=== PATIENT | female | born 1985 | race Caucasian/White ===

== ENCOUNTER 2018-01-11 11:20 | Emergency (ER) | payer OTHER ==
[~2018-01-11] VITALS: Ht 170.2 cm; Wt 86.2 kg
[2018-01-11 11:52] VITALS: BP 120/74
[2018-01-11] MEDS ORDERED: PRED20TA PO (11:59)
--- NOTE | 2018-01-11 11:59 | PHYS DOC ---
Past History Past Medical History: Depression Additional Past Medical Histor: Crohn's Past Surgical History: Tonsillectomy Additional Past Surgical Histo: Intra-abdominal abscess Smoking: Cigarettes Alcohol Use: Rarely Drug Use: None Adult General Chief Complaint Chief Complaint: Neck Pain HPI HPI 32-year-old female presents with report of right sided "swollen lymph node "which is been ongoing for the past few days. Patient reports she was seen at the [facility] and started on antibiotics. Reports lymph node has not improved. Reports some slight sore throat which is now improved. Denies nasal congestion. Denies toothache. Denies fever/chills. Patient reports concern as she has a family history of "lymphoma". Review of Systems Review of Systems Constitutional: Denies fever or chills [] Eyes: Denies change in visual acuity, redness, or eye pain [] HENT: Denies current nasal congestion or sore throat, reports right sided lymph node Respiratory: Denies cough or shortness of breath [] Cardiovascular: Denies chest pain or palpitations] GI: Denies abdominal pain, nausea, vomiting, or diarrhea [] : Denies dysuria or hematuria or Musculoskeletal: Denies back pain or joint pain [] Integument: Denies rash or laceration Neurologic: Denies headache, focal weakness or sensory changes [] Complete systems were reviewed and found to be within normal limits, except as documented in this note. Allergies Allergies Allergies Coded Allergies Type Severity Reaction Last Updated Verified No Known Drug Allergies 01/11/18 No Physical Exam Physical Exam Constitutional: Well developed, well nourished, no acute distress, non-toxic appearance. [] HENT: Normocephalic, atraumatic, bilateral external ears normal, TMs clear, oropharynx moist, no oral exudates, nose normal, mild pharyngeal erythema Eyes: PERRL, EOMI, conjunctiva normal, no discharge. [] Neck: Normal range of motion, no tenderness, supple, no meningeal signs, right anterior cervical swollen lymph node appreciated Cardiovascular: Heart rate regular rhythm, no murmur [] Lungs & Thorax: Bilateral breath sounds clear to auscultation [] Abdomen: Soft, no tenderness Skin: Warm, dry, no erythema, no rash. [] Back: No tenderness, no CVA tenderness. [] Extremities: No tenderness, ROM intact, no edema. [] Neurologic: Alert and oriented X 3, normal motor function, normal sensory function, no focal deficits noted. [] Psychologic: Affect normal, judgement normal, mood- anxious EKG EKG [] Radiology/Procedures Radiology/Procedures [] Course & Med Decision Making Course & Med Decision Making Pertinent Labs and Imaging studies reviewed. (See chart for details) Patient presents with right swollen cervical lymph node. History of recent evaluation at urgent care and started on antibiotics. Other clinical findings of infection. Possible reactionary. Patient is concerned as family history of "lymphoma". Patient advised she would need to follow with her PCP for further evaluation. Imaging currently not required. We will treat supportively. Empiric steroid initiated. Patient advised to continue antibiotics until complete. Patient stable for discharge with outpatient follow-up with PCP. Discussed findings and plan with patient and family, who acknowledge understanding and agreement. Dragon Disclaimer Dragon Disclaimer This electronic medical record was generated, in whole or in part, using a voice recognition dictation system. Departure Departure: Impression: Primary Impression: Lymphadenopathy of right cervical region Disposition: 01 HOME, SELF-CARE Condition: STABLE Referrals: SENAIT JOHNOSN (PCP) Patient Instructions: Cervical Adenitis Scripts Prednisone (PREDNISONE) 20 Mg Tablet 2 TAB PO DAILY, #8 TAB Start on Saturday01/12/18 Prov: TRANG POLANCO DO 01/11/18 TRANG POLANCO DO Jan 11, 2018 11:59
[2018-01-11] MEDS ORDERED: predniSONE 20 MG TABLET PO ONE (12:00)
== END 2018-01-11 12:08 | disposition home or self-care (01) ==
LOC: ER 11:20
DX: R59.1 Generalized enlarged lymph nodes (principal); F32.9 Major depressive disorder, single episode, unspecified; F17.210 Nicotine dependence, cigarettes, uncomplicated
CPT/HCPCS: 99283; J7512

== ENCOUNTER 2018-05-23 16:59 | Emergency (ER) | payer OTHER ==
[~2018-05-23] VITALS: Ht 157.5 cm; Wt 85.3 kg
[~2018-05-23 16:59] MED LIST: PRED20TA PO
[2018-05-23] MEDS ORDERED: IV NORMAL SALINE 1,000ML 1,000 ML IV SCH (19:00)
--- NOTE | 2018-05-23 19:07 | ED.ADGEN ---
Past History Past Medical History: Depression Additional Past Medical Histor: Crohn's Past Surgical History: Tonsillectomy Additional Past Surgical Histo: Intra-abdominal abscess Smoking: Cigarettes Alcohol Use: Rarely Drug Use: None Adult General Chief Complaint Chief Complaint abd pain HPI HPI 33 years old female with history of Crohn's disease she is in Humira and prednisone presented to the emergency department with left lower quadrant abdominal pain described as a sharp constant pain she also noticed increased diarrhea and blood in the stool she was seen and evaluated in the Hospital in [facility] where she had a CT scan and urinalysis as CT scan of the abdomen showed possible pyelonephritis. She was placed on Levaquin she presented here to the emergency Department stated that her pain is a lot worse Review of Systems Review of Systems Constitutional: Denies fever or chills [] Eyes: Denies change in visual acuity, redness, or eye pain [] HENT: Denies nasal congestion or sore throat [] Respiratory: Denies cough or shortness of breath [] Cardiovascular: No additional information not addressed in HPI [] : Denies dysuria or hematuria [] Musculoskeletal: Denies back pain or joint pain [] Integument: Denies rash or skin lesions [] Neurologic: Denies headache, focal weakness or sensory changes [] Endocrine: Denies polyuria or polydipsia [] All other systems were reviewed and found to be within normal limits, except as documented in this note. Current Medications Current Medications Current Medications Medications (Trade) Dose Ordered Sig/Shakira Start Time Stop Time Status Last Admin Dose Admin Info (Do NOT chart on this entry -- for MONITORING) 1 each PRN DAILY PRN 05/23/18 20:00 05/25/18 19:59 Iohexol (Omnipaque 300 Mg/ml) 75 ml 1X ONCE 05/23/18 19:45 05/23/18 19:51 DC 05/23/18 20:35 75 ML Ketorolac Tromethamine (Toradol 30mg Vial) 30 mg 1X ONCE 05/23/18 19:30 05/23/18 19:31 DC 05/23/18 19:27 30 MG Morphine Sulfate (Morphine 4mg Syringe) 4 mg 1X ONCE 05/23/18 20:15 05/23/18 20:17 DC 05/23/18 20:11 4 MG Sodium Chloride 1,000 ml @ 100 mls/hr Q10H 12/21/18 19:00 05/24/18 04:59 05/23/18 19:27 100 MLS/HR Allergies Allergies Allergies Coded Allergies Type Severity Reaction Last Updated Verified No Known Drug Allergies 01/11/18 No Physical Exam Physical Exam Constitutional: Well developed, well nourished, no acute distress, non-toxic appearance. [] HENT: Normocephalic, atraumatic, bilateral external ears normal, oropharynx moist, no oral exudates, nose normal. [] Eyes: PERRLA, EOMI, conjunctiva normal, no discharge. [] Neck: Normal range of motion, no tenderness, supple, no stridor. [] Cardiovascular:Heart rate regular rhythm, no murmur [] Lungs & Thorax: Bilateral breath sounds clear to auscultation [] Abdomen: Bowel sounds normal, soft, + tenderness in left lower q , no masses, no pulsatile masses. [] Skin: Warm, dry, no erythema, no rash. [] Back: No tenderness, no CVA tenderness. [] Extremities: No tenderness, no cyanosis, no clubbing, ROM intact, no edema. [] Neurologic: Alert and oriented X 3, normal motor function, normal sensory function, no focal deficits noted. [] Psychologic: Affect normal, judgement normal, mood normal. [] Current Patient Data Vital Signs Vital Signs Date Time Temp Pulse Resp B/P (MAP) Pulse Ox O2 Delivery O2 Flow Rate FiO2 05/23/18 20:11 18 Room Air 05/23/18 19:06 98.4 99 97 Lab Results Laboratory Tests Test 05/23/18 18:45 05/23/18 18:57 05/23/18 19:20 05/23/18 20:40 Urine Collection Type Unknown Urine Color Yellow Urine Clarity Hazy Urine pH 6.0 Urine Specific [place] 1.015 Urine Protein Neg (NEG-TRACE) Urine Glucose (UA) 250 mg/dL (NEG) Urine Ketones (Stick) Neg mg/dL (NEG) Urine Blood Mod (NEG) Urine Nitrite Neg (NEG) Urine Bilirubin Neg (NEG) Urine Urobilinogen Dipstick 0.2 mg/dL (0.2 mg/dL) Urine Leukocyte Esterase Neg (NEG) Urine RBC 6-10 /HPF (0-2) Urine WBC 1-4 /HPF (0-4) Urine Squamous Epithelial Cells Many /LPF Urine Bacteria Few /HPF (0-FEW) Urine Mucus Slight /LPF POC Urine HCG, Qualitative hcg negative (Negative) White Blood Count 17.6 x10^3/uL (4.0-11.0) H Red Blood Count 4.95 x10^6/uL (3.50-5.40) Hemoglobin 14.7 g/dL (12.0-15.5) Hematocrit 43.2 % (36.0-47.0) Mean Corpuscular Volume 87 fL (79-100) Mean Corpuscular Hemoglobin 30 pg (25-35) Mean Corpuscular Hemoglobin Concent 34 g/dL (31-37) Red Cell Distribution Width 13.7 % (11.5-14.5) Platelet Count 499 x10^3/uL (140-400) H Neutrophils (%) (Auto) 69 % (31-73) Lymphocytes (%) (Auto) 21 % (24-48) L Monocytes (%) (Auto) 9 % (0-9) Eosinophils (%) (Auto) 0 % (0-3) Basophils (%) (Auto) 1 % (0-3) Neutrophils # (Auto) 12.2 x10^3uL (1.8-7.7) H Lymphocytes # (Auto) 3.6 x10^3/uL (1.0-4.8) Monocytes # (Auto) 1.6 x10^3/uL (0.0-1.1) H Eosinophils # (Auto) 0.0 x10^3/uL (0.0-0.7) Basophils # (Auto) 0.2 x10^3/uL (0.0-0.2) Segmented Neutrophils % 68 % (35-66) H Lymphocytes % 22 % (24-48) L Atypical Lymphocytes % (Manual) 1 % (0-0) H Monocytes % 9 % (0-10) Platelet Estimate Adequate (ADEQUATE) Sodium Level 139 mmol/L (136-145) Potassium Level 3.5 mmol/L (3.5-5.1) Chloride Level 104 mmol/L (98-107) Carbon Dioxide Level 23 mmol/L (21-32) Anion Gap 12 (6-14) Blood Urea Nitrogen 7 mg/dL (7-20) Creatinine 0.6 mg/dL (0.6-1.0) Estimated GFR (Cockcroft-Gault) 113.8 BUN/Creatinine Ratio 12 (6-20) Glucose Level 89 mg/dL (70-99) Calcium Level 7.9 mg/dL (8.5-10.1) L Total Bilirubin 0.2 mg/dL (0.2-1.0) Aspartate Amino Transferase (AST) 15 U/L (15-37) Alanine Aminotransferase (ALT) 30 U/L (14-59) Alkaline Phosphatase 111 U/L (46-116) Total Protein 6.6 g/dL (6.4-8.2) Albumin 2.8 g/dL (3.4-5.0) L Albumin/Globulin Ratio 0.7 (1.0-1.7) L Lipase 93 U/L (73-393) Serum Test, Qualitative Negative (NEG) EKG EKG [] Radiology/Procedures Radiology/Procedures [] Course & Med Decision Making Course & Med Decision Making Pertinent Labs and Imaging studies reviewed. (See chart for details) [] Final Impression Final Impression [] Problems: (1) Exacerbation of Crohn's disease Qualifiers: Qualified Codes: K50.90 - Crohn's disease, unspecified, without complications Dragon Disclaimer Dragon Disclaimer This electronic medical record was generated, in whole or in part, using a voice recognition dictation system. JOE HANSON MD May 23, 2018 19:07
[2018-05-23] MEDS ORDERED: KETOROLAC 30 MG/ML VIAL. IV ONE (19:30)
[2018-05-23] MEDS ORDERED: IOHEXOL 300 MG/ML 75 ML VIAL. IV ONE (19:45)
[2018-05-23 19:47] LABS: BASO # 0.2 x10^3/uL (0.0-0.2); BASO % 1 % (0-3); EOS % 0 % (0-3); HEMATOCRIT 43.2 % (36.0-47.0); HEMOGLOBIN 14.7 g/dL (12.0-15.5); LYMPH # 3.6 x10^3/uL (1.0-4.8); LYMPH % 21 % (24-48); MEAN CORPUSCULAR HEMOGLOBIN 30 pg (25-35); MEAN CORPUSCULAR HGB CONC 34 g/dL (31-37); MEAN CORPUSCULAR VOLUME 87 fL (79-100); MONO # 1.6 x10^3/uL (0.0-1.1); MONO % 9 % (0-9); NEUT # 12.2 x10^3uL (1.8-7.7); NEUT % 69 % (31-73); PLATELET COUNT 499 x10^3/uL (140-400); RED BLOOD COUNT 4.95 x10^6/uL (3.50-5.40); RED CELL DISTRIBUTION WIDTH 13.7 % (11.5-14.5); WHITE BLOOD COUNT 17.6 x10^3/uL (4.0-11.0)
[2018-05-23 19:54] LABS: BACTERIA,URINE FEW /HPF (0-FEW); BILIRUBIN,URINE NEG (NEG); CLARITY,URINE HAZY; COLOR,URINE YELLOW; GLUCOSE,URINE 250 mg/dL (NEG); NITRITE,URINE NEG (NEG); SQUAMOUS EPITHELIAL CELL,UR MANY /LPF; UROBILINOGEN,URINE 0.2 mg/dL (0.2 mg/dL)
[2018-05-23] MEDS ORDERED: CONTRAST GIVEN MC PRN (20:00)
[2018-05-23] MEDS ORDERED: MORPHINE SULFATE 4 MG/ML DISP.SYRIN. IV ONE (20:15)
[2018-05-23 20:49] LABS: PREG TEST PT QUAL NEGATIVE (NEG)
[2018-05-23 20:53] LABS: ALBUMIN 2.8 g/dL (3.4-5.0); ALBUMIN/GLOBULIN RATIO 0.7 (1.0-1.7); CALCIUM 7.9 mg/dL (8.5-10.1); CREATININE 0.6 mg/dL (0.6-1.0); GFR 113.8; POTASSIUM 3.5 mmol/L (3.5-5.1); TOTAL BILIRUBIN 0.2 mg/dL (0.2-1.0); TOTAL PROTEIN 6.6 g/dL (6.4-8.2)
[2018-05-23 21:36] LABS: % LYMPHS 22 % (24-48); % MONOS 9 % (0-10)
--- NOTE | 2018-05-23 21:46 | RAD ---
Examination: CT ABD PELV W/ IV CONTRST ONLY History: Abdominal pain. Left lower abdomen pain radiating to lower back. Hx crohn's disease. No previous surgery or injury Comparison/Correlation: 08/31/2011 CT abdomen and pelvis without contrast Findings: Axial images of the abdomen and pelvis were obtained following IV contrast administration. Liver, spleen, pancreas, adrenal glands, and left kidney are normal. Nonobstructive right renal interpolar region calyceal calculus measuring 0.5 cm diameter is present. No enlarged abdominal or pelvic lymph nodes. Appendix is normal. Large quantity of stool is present in the colon. Intrauterine device is present. Lymph nodes about the cecum are present but not enlarged. No inflammatory changes of the terminal ileum. No loculated collections or extraluminal gas. Abdominal aortic diameter is normal. Right adnexal follicles are present and probably physiologic. Urinary bladder is unremarkable. Bony structures are normal. Impression: Lymph nodes about the cecum are present but not enlarged. Correlate for underlying adenitis. No suspicious inflammatory changes. Nonobstructive right renal calculus. Electronically signed by: Steve Cuadra MD (05/23/2018 9:43 PM) [facility]
[2018-05-23 21:49] LABS: PLT ESTIMATE ADEQUATE (ADEQUATE)
[2018-05-23 21:58] LABS: % ATYL 1 % (0-0)
[2018-05-23 21:59] VITALS: BP 135/70
[2018-05-23] MEDS ORDERED: METR500T PO (22:05)
[2018-05-23] MEDS ORDERED: HYDR-3165 PO (22:05)
[2018-05-28 15:14] LABS: % SEGS 68 % (35-66)
== END 2018-05-23 22:14 | disposition home or self-care (01) ==
LOC: ER 16:59
DX: K50.90 Crohn's disease, unspecified, without complications (principal); R19.7 Diarrhea, unspecified; F17.210 Nicotine dependence, cigarettes, uncomplicated
CPT/HCPCS: 36415; 74177; 80053; 81001; 81025; 83690; 84703; 85007; 85025; 96361; 96374; 96375; 99284; J1885; J2270; Q9967; J7030

== ENCOUNTER 2018-07-19 12:38 | Emergency (ER) | payer OTHER ==
[~2018-07-19] VITALS: Ht 157.5 cm; Wt 88.5 kg
[~2018-07-19 12:38] MED LIST changes: +HYDR-3165 PO; +METR500T PO
[2018-07-19] MEDS ORDERED: IV NORMAL SALINE 1,000ML 1,000 ML IV SCH (13:00)
[2018-07-19] MEDS ORDERED: ONDANSETRON PF 4 MG/2 ML VIAL. IV ONE (13:00)
--- NOTE | 2018-07-19 13:28 | PHYS DOC ---
Past History Past Medical History: Depression, Other Additional Past Medical Histor: Crohn's Past Surgical History: Tonsillectomy, Other Additional Past Surgical Histo: Intra-abdominal abscess Smoking: Cigarettes Alcohol Use: Rarely Drug Use: None Adult General Chief Complaint Chief Complaint: FLANK PAIN HPI HPI Patient is a 33 year old female who presents with complaining of low back and flank pain for 10 days. She complaining of sudden onset of bilateral flank pain that is more in the left site for the last 10 days as a constant aching pain with episodes of sharp pain during urination. She complaining of urinary frequency and dysuria with temperature as high as 99.5 and nausea without vomiting and diarrhea and constipation. Patient was seen at [facility] and treated with Macrobid and then Cipro for 3 days with unremarkable UA and urine culture. Patient complaining of continuing to have pain in because of Crohn's disease decided to come to emergency room. Patient rated her pain 2/10 and states during urination her pain increases to 8/10. Review of Systems Review of Systems Constitutional: Reports low-grade fever Eyes: Denies change in visual acuity, redness, or eye pain [] HENT: Denies nasal congestion or sore throat [] Respiratory: Denies cough or shortness of breath [] Cardiovascular: No additional information not addressed in HPI [] GI: Denies abdominal pain, nausea, vomiting, bloody stools or diarrhea [] : Post urinary frequency and dysuria and flank pain Musculoskeletal: Denies back pain or joint pain [] Integument: Denies rash or skin lesions [] Neurologic: Denies headache, focal weakness or sensory changes [] Endocrine: Denies polyuria or polydipsia [] All other systems were reviewed and found to be within normal limits, except as documented in this note. Current Medications Current Medications Current Medications Medications (Trade) Dose Ordered Sig/Shakira Start Time Stop Time Status Last Admin Dose Admin Ondansetron HCl (Zofran) 4 mg 1X ONCE 07/19/18 13:00 07/19/18 13:09 DC Sodium Chloride 1,000 ml @ 1,000 mls/hr Q1H 07/19/18 13:00 07/19/18 13:59 07/19/18 13:22 1,000 MLS/HR Allergies Allergies Allergies Coded Allergies Type Severity Reaction Last Updated Verified ciprofloxacin Allergy Intermediate rash 07/19/18 Yes Physical Exam Physical Exam Constitutional: Well developed, well nourished, mild acute distress, non-toxic appearance. [] HENT: Normocephalic, atraumatic, oropharynx moist, no oral exudates, nose normal. [] Eyes: PERRLA, EOMI, conjunctiva normal, no discharge. [] Neck: Normal range of motion, no tenderness, supple, no stridor. [] Cardiovascular:Heart rate regular rhythm, no murmur [] Lungs & Thorax: Bilateral breath sounds clear to auscultation [] Abdomen: Bowel sounds normal, soft, no tenderness, no masses, no pulsatile masses. [] Skin: Warm, dry, no erythema, no rash. [] Back: No tenderness, no CVA tenderness. [] Extremities: No tenderness, no cyanosis, no clubbing, ROM intact, no edema. [] Neurologic: Alert and oriented X 3, normal motor function, normal sensory function, no focal deficits noted. [] Psychologic: Affect normal, judgement normal, mood normal. [] EKG EKG [] Radiology/Procedures Radiology/[place] [address] IMAGING REPORT Signed PATIENT: PENELOPE LOVELL ACCOUNT: [id number] : 1985 LOCATION: ER AGE: 33 SEX: F EXAM STATUS: REG ER ORD. PHYSICIAN: LUCERO LÓEPZ MD REASON: left flank pain for 10 days PROCEDURE: CT ABDOMEN PELVIS WO CONTRAST ADDENDUM PQRS Compliance Statement: One or more of the following individualized dose reduction techniques were utilized for this examination: 1. Automated exposure control 2. Adjustment of the mA and/or kV according to patient size 3. Use of iterative reconstruction technique Electronically signed by: Jeffry Lamb MD (07/19/2018 4:19 PM) [facility] DICTATED AND SIGNED BY: JEFFRY LAMB MD DATE: 07/19/18 1618 CC: SENAIT JOHNSON; LUCERO LÓPEZ MD ~ CT abdomen and pelvis without contrast. HISTORY: Left flank pain CT scan of the abdomen and pelvis was done without contrast. Comparison is made to study from May 2018. Lung bases are clear. There is no pleural effusion. A liver lesion is not identified. Spleen and adrenal glands are normal. Pancreas is unremarkable. There are small bilateral intrarenal calculi. There is no ureteral calculus or hydronephrosis. There is no calcified gallstone. There is no adenopathy or ascites. There is no free air. There is no bowel obstruction. Appendix is normal. There is an intrauterine contraceptive device in normal position. Ovaries are unremarkable. There is no ascites. There is mild wall thickening of the descending colon and sigmoid colon consistent with colitis. IMPRESSION: 1. Wall thickening of the descending colon and sigmoid colon consistent with colitis. 2. Normal appendix. 3. Intrarenal calculi but no ureteral calculus or hydronephrosis. Electronically signed by: Jeffry Lamb MD (07/19/2018 3:26 PM) [facility] DICTATED AND SIGNED BY: JEFFRY LAMB MD DATE: 07/19/18 1512 CC: SENAIT JOHNSON; LUCERO LÓPEZ MD ~ Course & Med Decision Making Course & Med Decision Making Pertinent Labs and Imaging studies reviewed. (See chart for details) Evaluation of patient in ER showed 33-year-old female patient with history of Crohn's disease presented to ER with left flank pain for more than 10 days that getting force with urination. Patient understood treated with Macrobid and [facility] without improvement of her condition. Labs showed mild leukocytosis with colitis and CT of abdomen and pelvis. Patient treated with IV fluid and felt better. I offered patient hospitalization with diagnose of Crohn' s exacerbation but patient wants to try outpatient treatment and follow up with her GI specialist. Patient currently taking 40 mg of prednisone daily and Medrol Dosepak was given for taking besides on current home prednisone. Dragon Disclaimer Dragon Disclaimer This electronic medical record was generated, in whole or in part, using a voice recognition dictation system. Departure Departure: Impression: Primary Impression: Exacerbation of Crohn's disease Additional Impressions: Colitis Left flank pain Disposition: HOME, SELF-CARE (at 1600) Condition: IMPROVED Referrals: SENAIT JOHNSON (PCP) Patient Instructions: Colitis, Crohn's Disease, Flank Pain Additional Instructions: Drink plenty of liquids Follow-up with your primary care physician in 3-5 days Return to ER if not getting better Do not take solid food Scripts Cephalexin (KEFLEX) 500 Mg Capsule 2 CAP PO Q12HR for infection, #28 CAP Prov: LUCERO LÓPEZ MD 07/19/18 Methylprednisolone (MEDROL) 4 Mg Tab.ds.pk 1 PKG PO UD for inflammation, #1 PKG Prov: LUCERO LÓPEZ MD 07/19/18 Hydrocodone Bit/Acetaminophen (NORCO 5-325 TABLET) 1 Each Tablet 1 TAB PO PRN Q6HRS PRN for PAIN, #14 TAB 0 Refills Prov: LUCERO LÓPEZ MD 07/19/18 Metronidazole (FLAGYL) 500 Mg Tablet 1 TAB PO Q8HRS for colitis, #21 TAB Prov: LUCERO LÓPEZ MD 07/19/18 Problem Qualifiers LUCERO LÓPEZ MD Jul 19, 2018 13:28
[2018-07-19 13:29] LABS: BASO # 0.1 x10^3/uL (0.0-0.2); BASO % 1 % (0-3); EOS % 0 % (0-3); HEMATOCRIT 42.4 % (36.0-47.0); HEMOGLOBIN 13.8 g/dL (12.0-15.5); LYMPH % 7 % (24-48); MEAN CORPUSCULAR HEMOGLOBIN 28 pg (25-35); MEAN CORPUSCULAR HGB CONC 33 g/dL (31-37); MEAN CORPUSCULAR VOLUME 86 fL (79-100); MONO # 0.2 x10^3/uL (0.0-1.1); MONO % 1 % (0-9); NEUT # 13.6 x10^3uL (1.8-7.7); NEUT % 92 % (31-73); PLATELET COUNT 458 x10^3/uL (140-400); RED BLOOD COUNT 4.91 x10^6/uL (3.50-5.40); RED CELL DISTRIBUTION WIDTH 14.6 % (11.5-14.5); WHITE BLOOD COUNT 14.8 x10^3/uL (4.0-11.0)
[2018-07-19 13:50] LABS: CLARITY,URINE HAZY; COLOR,URINE ORANGE
[2018-07-19 14:01] LABS: BILIRUBIN,URINE NEG (NEG)
[2018-07-19 14:04] LABS: BACTERIA,URINE FEW /HPF (0-FEW); SQUAMOUS EPITHELIAL CELL,UR FEW /LPF; WBC,URINE OCC /HPF (0-4)
[2018-07-19 14:05] LABS: U PREG PATIENT NEGATIVE (NEG)
[2018-07-19 14:10] LABS: ALBUMIN 2.9 g/dL (3.4-5.0); ALBUMIN/GLOBULIN RATIO 0.7 (1.0-1.7); CALCIUM 8.3 mg/dL (8.5-10.1); CREATININE 0.9 mg/dL (0.6-1.0); GFR 71.3; POTASSIUM 3.9 mmol/L (3.5-5.1); TOTAL BILIRUBIN 0.2 mg/dL (0.2-1.0); TOTAL PROTEIN 6.9 g/dL (6.4-8.2)
--- NOTE | 2018-07-19 15:30 | RAD ---
CT abdomen and pelvis without contrast. HISTORY: Left flank pain CT scan of the abdomen and pelvis was done without contrast. Comparison is made to study from May 2018. Lung bases are clear. There is no pleural effusion. A liver lesion is not identified. Spleen and adrenal glands are normal. Pancreas is unremarkable. There are small bilateral intrarenal calculi. There is no ureteral calculus or hydronephrosis. There is no calcified gallstone. There is no adenopathy or ascites. There is no free air. There is no bowel obstruction. Appendix is normal. There is an intrauterine contraceptive device in normal position. Ovaries are unremarkable. There is no ascites. There is mild wall thickening of the descending colon and sigmoid colon consistent with colitis. IMPRESSION: 1. Wall thickening of the descending colon and sigmoid colon consistent with colitis. 2. Normal appendix. 3. Intrarenal calculi but no ureteral calculus or hydronephrosis. Electronically signed by: Jeffry Lamb MD (07/19/2018 3:26 PM) [facility]
[2018-07-19 16:00] VITALS: BP 118/65
[2018-07-19] MEDS ORDERED: methylPREDNISolone SOD SUCC PF 125 MG/2 ML VIAL. IV ONE (16:00)
[2018-07-19] MEDS ORDERED: METR500T PO (16:05)
[2018-07-19] MEDS ORDERED: HYDR-3165 PO (16:05)
[2018-07-19] MEDS ORDERED: CIPR250T30 PO (16:05)
[2018-07-19] MEDS ORDERED: METH4TAB2 PO (16:09)
[2018-07-19] MEDS ORDERED: CEPH-264 PO (16:09)
== END 2018-07-19 16:15 | disposition home or self-care (01) ==
LOC: ER 12:38
DX: K50.90 Crohn's disease, unspecified, without complications (principal); K52.9 Noninfective gastroenteritis and colitis, unspecified; D72.829 Elevated white blood cell count, unspecified; F32.9 Major depressive disorder, single episode, unspecified; F17.210 Nicotine dependence, cigarettes, uncomplicated; Z88.1 Allergy status to other antibiotic agents
CPT/HCPCS: 36415; 74176; 80053; 81001; 81025; 83605; 83690; 85025; 96361; 96374; 96375; 99284; J2405; J2930; J7030

== ENCOUNTER 2019-04-26 12:33 | Emergency (ER) | payer OTHER ==
[~2019-04-26 12:33] MED LIST changes: +CEPH-264 PO; +CIPR250T30 PO; +METH4TAB2 PO
[2019-04-26] MEDS ORDERED: IV NORMAL SALINE 1,000ML 1,000 ML IV SCH (12:52)
[2019-04-26] MEDS ORDERED: ONDANSETRON PF 4 MG/2 ML VIAL. IVP ONE (13:00)
--- NOTE | 2019-04-26 13:18 | PHYS DOC ---
Past History Past Medical History: Depression, Other Additional Past Medical Histor: Crohn's Past Surgical History: Tonsillectomy, Other Additional Past Surgical Histo: Intra-abdominal abscess Smoking: Cigarettes Alcohol Use: None Drug Use: None Adult General Chief Complaint Chief Complaint: ABDOMINAL PAIN [facility] HPI Patient is a 34-year-old female who presents with complaint of left lower abdo cathy pain that started this morning. Patient states that she has Mirena and states that she is concerned that her pain may be due to a complication of her Mirena. She does indicate that she also has a history of Crohn's disease but has not had a flareup for quite some time and denies any diarrhea. She also denies any fever. Patient rates her pain at an 8 out of 10. She denies any nausea or vomiting. She states that pain is worsened with movement and walking. She states that pain is somewhat improved with lying still.[] Review of Systems Review of Systems Constitutional: Denies fever or chills [] Respiratory: Denies cough or shortness of breath [] Cardiovascular: No additional information not addressed in HPI [] GI: Positive left lower abdominal pain without vomiting or diarrhea [] : Denies dysuria or hematuria [] Musculoskeletal: Denies back pain or joint pain [] Integument: Denies rash or skin lesions [] All other systems were reviewed and found to be within normal limits, except as documented in this note. Current Medications Current Medications Current Medications Medications (Trade) Dose Ordered Sig/Shakira Start Time Stop Time Status Last Admin Dose Admin Fentanyl Citrate (Fentanyl 2ml Vial) 50 mcg PRN Q15MIN PRN 04/26/19 13:00 04/27/19 12:59 Ondansetron HCl (Zofran) 4 mg 1X ONCE 04/26/19 13:00 04/26/19 13:01 DC Sodium Chloride 1,000 ml @ 1,000 mls/hr Q1H 04/26/19 12:52 04/26/19 13:51 Allergies Allergies Allergies Coded Allergies Type Severity Reaction Last Updated Verified ciprofloxacin Allergy Intermediate rash 07/19/18 Yes Physical Exam Physical Exam Constitutional: Well developed, well nourished, no acute distress, non-toxic appearance. [] HENT: Normocephalic, atraumatic, bilateral external ears normal, oropharynx moist, no oral exudates, nose normal. [] Eyes: PERRLA, EOMI, conjunctiva normal, no discharge. [] Neck: Normal range of motion, no tenderness, supple, no stridor. [] Cardiovascular:Heart rate regular rhythm, no murmur [] Lungs & Thorax: Bilateral breath sounds clear to auscultation [] Abdomen: Bowel sounds normal, soft, with left lower abdominal tenderness. [] Skin: Warm, dry, no erythema, no rash. [] Extremities: No tenderness, no cyanosis, no clubbing, ROM intact, no edema. [] Neurologic: Alert and oriented X 3, no focal deficits noted. [] Current Patient Data Lab Results Laboratory Tests Test 04/26/19 12:48 POC Urine HCG, Qualitative hcg negative (Negative) EKG EKG [] Radiology/Procedures Radiology/Procedures [] Impressions: PROCEDURE: US PELVIS EXAM: Pelvic ultrasound HISTORY: Left pelvic pain. COMPARISON: None. FINDINGS: Sonographic evaluation of the pelvis was performed transabdominally. The uterus is anteverted and measures 8.2 x 4.3 x 3.0 cm. The endometrial stripe is thin at <4 mm. An intrauterine device is in place. No masses are identified. There is no significant free fluid. The right ovary measures 2.6 x 2.2 x 1.9 cm. The left ovary measures 2.2 x 1.9 x 1.5 cm and contains a dominant follicle There is normal Doppler flow bilaterally. There are no suspicious lesions. IMPRESSION: 1. No cause for pain is identified. Electronically signed by: Donita Laboy MD (04/26/2019 2:25 PM) [facility] PROCEDURE: CT ABD PELV W/ IV CONTRST ONLY EXAM: CT ABDOMEN/PELVIS WITH CONTRAST. HISTORY: Left lower quadrant pain. TECHNIQUE: Computed tomography of the abdomen and pelvis was performed after the intravenous administration of iodinated contrast. COMPARISON: 07/19/2018. FINDINGS: Lung windows through the visualized portions of the bases reveal mild atelectasis. Bone windows reveal no suspicious lesions. The most superior aspect of the hepatic dome it is not included. No liver lesions are identified. The spleen, adrenal glands, pancreas, and gallbladder are unremarkable. There are no pathologically enlarged lymph nodes. 2 tiny left ureterovesical junction calculi measure <2 mm. There is mild left pelviectasis and hydroureter. A right renal calculus measures 2 mm. An intrauterine device is in expected position. The appendix is not inflamed. There is no small bowel obstruction. IMPRESSION: 1. 2 tiny left ureterovesical junction calculi measure <2 mm. Mild proximal obstructive findings. 2. 2 mm right renal calculus. *One or more of the following individualized dose reduction techniques were utilized for this examination: 1. Automated exposure control. 2. Adjustment of the mA and/or kV according to patient size. 3. Use of iterative reconstruction technique. Electronically signed by: Donita Laboy MD (04/26/2019 4:11 PM) [facility] Course & Med Decision Making Course & Med Decision Making Pertinent Labs and Imaging studies reviewed. (See chart for details) [] Dragon Disclaimer Dragon Disclaimer This electronic medical record was generated, in whole or in part, using a voice recognition dictation system. Departure Departure: Impression: Primary Impression: Ureterolithiasis Disposition: 01 HOME, SELF-CARE Condition: STABLE Referrals: SENAIT JOHNSON (PCP) Patient Instructions: Kidney Stones Scripts Ketorolac Tromethamine (KETOROLAC TROMETHAMINE) 10 Mg Tablet 1 TAB PO PRN Q6HRS PRN for PAIN, #20 TAB Prov: RAQUEL FAIR Jr. DO 04/26/19 Ondansetron (ONDANSETRON ODT) 4 Mg Tab.rapdis 1 TAB PO PRN Q6-8HRS PRN for NAUSEA, #12 TAB Prov: RAQUEL FAIR Jr. DO 04/26/19 Oxycodone Hcl/Acetaminophen (PERCOCET 7.5-325 MG TABLET ) 1 Each Tablet 1 TAB PO PRN QID PRN for PAIN MDD 4 Tablet(s) for 3 Days, #12 TAB 0 Refills Prov: RAQUEL FAIR Jr. DO 04/26/19 RAQUEL FAIR Jr. DO Apr 26, 2019 13:18
[2019-04-26 13:35] LABS: BASO # 0.1 x10^3/uL (0.0-0.2); BASO % 1 % (0-3); EOS # 0.2 x10^3/uL (0.0-0.7); EOS % 2 % (0-3); HEMATOCRIT 44.9 % (36.0-47.0); HEMOGLOBIN 14.9 g/dL (12.0-15.5); LYMPH # 3.1 x10^3/uL (1.0-4.8); LYMPH % 28 % (24-48); MEAN CORPUSCULAR HEMOGLOBIN 31 pg (25-35); MEAN CORPUSCULAR HGB CONC 33 g/dL (31-37); MEAN CORPUSCULAR VOLUME 95 fL (79-100); MONO # 0.9 x10^3/uL (0.0-1.1); MONO % 8 % (0-9); NEUT # 6.6 x10^3uL (1.8-7.7); NEUT % 61 % (31-73); PLATELET COUNT 281 x10^3/uL (140-400); RED BLOOD COUNT 4.75 x10^6/uL (3.50-5.40); RED CELL DISTRIBUTION WIDTH 13.5 % (11.5-14.5); WHITE BLOOD COUNT 10.8 x10^3/uL (4.0-11.0)
[2019-04-26 13:53] LABS: BILIRUBIN,URINE NEG (NEG); CLARITY,URINE CLEAR; COLOR,URINE AMBER; GLUCOSE,URINE NEG (NEG); NITRITE,URINE NEG (NEG); UROBILINOGEN,URINE 0.2 mg/dL (0.2 mg/dL)
[2019-04-26 13:54] LABS: BACTERIA,URINE MOD /HPF (0-FEW); SQUAMOUS EPITHELIAL CELL,UR FEW /LPF
[2019-04-26 13:56] LABS: ALBUMIN 3.8 g/dL (3.4-5.0); ALBUMIN/GLOBULIN RATIO 1.2 (1.0-1.7); CALCIUM 8.9 mg/dL (8.5-10.1); CREATININE 0.5 mg/dL (0.6-1.0); GFR 139.6; TOTAL BILIRUBIN 0.3 mg/dL (0.2-1.0); TOTAL PROTEIN 7.1 g/dL (6.4-8.2)
[2019-04-26 13:58] LABS: POTASSIUM 4.3 mmol/L (3.5-5.1)
[2019-04-26 14:20] LABS: ANISOCYTOSIS PRESENT; PLT ESTIMATE ADEQUATE (ADEQUATE)
--- NOTE | 2019-04-26 14:28 | RAD ---
EXAM: Pelvic ultrasound HISTORY: Left pelvic pain. COMPARISON: None. FINDINGS: Sonographic evaluation of the pelvis was performed transabdominally. The uterus is anteverted and measures 8.2 x 4.3 x 3.0 cm. The endometrial stripe is thin at <4 mm. An intrauterine device is in place. No masses are identified. There is no significant free fluid. The right ovary measures 2.6 x 2.2 x 1.9 cm. The left ovary measures 2.2 x 1.9 x 1.5 cm and contains a dominant follicle There is normal Doppler flow bilaterally. There are no suspicious lesions. IMPRESSION: 1. No cause for pain is identified. Electronically signed by: Donita Laboy MD (04/26/2019 2:25 PM) [facility]
[2019-04-26 14:46] VITALS: BP 123/88
[2019-04-26] MEDS ORDERED: IOHEXOL 300 MG/ML 75 ML VIAL. IV ONE (15:00)
--- NOTE | 2019-04-26 16:14 | RAD ---
EXAM: CT ABDOMEN/PELVIS WITH CONTRAST. HISTORY: Left lower quadrant pain. TECHNIQUE: Computed tomography of the abdomen and pelvis was performed after the intravenous administration of iodinated contrast. COMPARISON: 07/19/2018. FINDINGS: Lung windows through the visualized portions of the bases reveal mild atelectasis. Bone windows reveal no suspicious lesions. The most superior aspect of the hepatic dome it is not included. No liver lesions are identified. The spleen, adrenal glands, pancreas, and gallbladder are unremarkable. There are no pathologically enlarged lymph nodes. 2 tiny left ureterovesical junction calculi measure <2 mm. There is mild left pelviectasis and hydroureter. A right renal calculus measures 2 mm. An intrauterine device is in expected position. The appendix is not inflamed. There is no small bowel obstruction. IMPRESSION: 1. 2 tiny left ureterovesical junction calculi measure <2 mm. Mild proximal obstructive findings. 2. 2 mm right renal calculus. *One or more of the following individualized dose reduction techniques were utilized for this examination: 1. Automated exposure control. 2. Adjustment of the mA and/or kV according to patient size. 3. Use of iterative reconstruction technique. Electronically signed by: Donita Laboy MD (04/26/2019 4:11 PM) [facility]
[2019-04-26] MEDS ORDERED: ONDA4TAB12 PO (16:36)
[2019-04-26] MEDS ORDERED: KETO10TA PO (16:36)
[2019-04-26] MEDS ORDERED: OXYC1TAB19 PO (16:36)
== END 2019-04-26 16:51 | disposition home or self-care (01) ==
LOC: ER 12:33
DX: N20.1 Calculus of ureter (principal); K50.90 Crohn's disease, unspecified, without complications; F17.210 Nicotine dependence, cigarettes, uncomplicated; Z88.1 Allergy status to other antibiotic agents
CPT/HCPCS: 36415; 74177; 76856; 80053; 81001; 81025; 83690; 85025; 87086; 96374; 96375; 99285; J2405; J3010; J7030

== ENCOUNTER → 2021-07-18 | Outpatient (CLI) | payer BC ==
[~2021-07-18] MED LIST changes: +KETO10TA PO; +ONDA4TAB12 PO; +OXYC1TAB19 PO
[2021-07-18 17:01] LABS: BASO % 0 % (0-3); EOS # 0.2 x10^3/uL (0.0-0.7); EOS % 2 % (0-3); HEMATOCRIT 41.4 % (36.0-47.0); HEMOGLOBIN 14.3 g/dL (12.0-15.5); LYMPH # 2.6 x10^3/uL (1.0-4.8); LYMPH % 25 % (24-48); MEAN CORPUSCULAR HEMOGLOBIN 33 pg (25-35); MEAN CORPUSCULAR HGB CONC 35 g/dL (31-37); MEAN CORPUSCULAR VOLUME 96 fL (79-100); MONO # 0.8 x10^3/uL (0.0-1.1); MONO % 7 % (0-9); NEUT % 66 % (31-73); PLATELET COUNT 336 x10^3/uL (140-400); RED BLOOD COUNT 4.34 x10^6/uL (3.50-5.40); RED CELL DISTRIBUTION WIDTH 13.7 % (11.5-14.5); WHITE BLOOD COUNT 10.7 x10^3/uL (4.0-11.0)
[2021-07-18 17:17] LABS: ALBUMIN 3.9 g/dL (3.4-5.0); CALCIUM 9.4 mg/dL (8.5-10.1); CREATININE 0.7 mg/dL (0.6-1.0); GFR 93.6; POTASSIUM 3.6 mmol/L (3.5-5.1); TOTAL BILIRUBIN 0.3 mg/dL (0.2-1.0)
[2021-07-19 07:12] LABS: HEMOGLOBIN A1C 5.5 % (4.8-5.6)
== END ==
LOC: LAB 15:55
PROVIDERS: ATTEND Obstetrics & Gynecology
DX: Z01.419 Encounter for gynecological examination (general) (routine) without abnormal findings (principal)
CPT/HCPCS: 36415; 80053; 83036; 84443; 85025